=== PATIENT | male | born 1940 | race Caucasian/White ===

== ENCOUNTER → 2016-06-08 | Outpatient (CLI) | payer MEDICARE, OTHER ==
[~2016-06-08] MED LIST: ACIPHEX20 MG PO; ADULT LOW DOSE81 M1 PO; ASPIR 8181 MG PO; AVODART0.5 MG PO; BUMETANIDE1 M1 PO; CALCIUM PO; CELEBREX200 MG PO; CENTRUM SILVER1 EAC3 PO; COLACE50 MG PO; COREG12.5 MG PO; Ecotrin PO; FINASTERIDE1 MG PO; Feosol PO; HYDROCODON-ACE1 EAC7 PO; IRON27 MG PO; KLOR-CON 1010 MEQ PO; KLOR-CON25 MEQ PO; MAGNESIUM PO; OMEPRAZOLE40 M1 PO; PRILOSEC10 MG PO; VYTORIN 10-201 EACH PO; Vicodin,Norco 5/325 PO
== END | disposition home or self-care (01) ==
LOC: CDC 12:33
DX: R00.1 Bradycardia, unspecified (principal); G56.01 Carpal tunnel syndrome, right upper limb
CPT/HCPCS: 93000